=== PATIENT | male | born 1950 | race Caucasian/White ===

== ENCOUNTER 2024-08-27 13:37 | Emergency (ER) | payer MEDICARE, SELFPAY ==
[2024-08-27 14:02] VITALS: BP 139/82; PULSE 55; RESP 16; TEMP 36.6; O2SAT 100
[2024-08-27 14:36] LABS: EDUAAPPEAR Clear; EDUABILI Negative (Negative); EDUABLOOD 3+ (Negative); EDUACOLOR1 Pink; EDUAGLUCOSE Negative (Negative); EDUAKETONE Negative (Negative); EDUALEUKO Negative (Negative); EDUANITRATE Negative (Negative); EDUAPH 5.5; EDUAPROTEIN Negative (Negative); EDUASPGRAVITY 1.005; EDUAUROBILI 0.2
--- NOTE | 2024-08-27 14:45 | ED_ITS ---
HPI - Male Genitourinary General Chief complaint: Urogenital-Male Stated complaint: Uti Symptoms Time Seen by Provider: 08/27/24 14:15 Source: patient Mode of arrival: ambulatory Limitations: no limitations History of Present Illness HPI Narrative: Homer is a 74-year-old male patient presenting to the clinic today with complaints of possible urinary tract infection. He reports over the past 1-2 days he has been having some urinary frequency, left flank pain and a rust color in his urine. Also reports a numbness feeling in his penis. Denies any fevers, chills, or body aches. History of kidney stones. Reports that he had 3 stones in his left kidney that were ultrasound last year. He does see a urologist in [place]. Reports his pain is a 1-2 of 10 currently in his left flank Related Data Home Medications ?Medication ?Instructions ?Recorded ?Confirmed ?Last Taken ?Type atenolol 25 mg tablet mg 08/27/24 Unknown History atorvastatin 40 mg tablet mg 08/27/24 Unknown History Allergies Allergy/AdvReac Type Severity Reaction Status Date / Time acetaminophen (From Percocet) Allergy Unknown Verified 08/27/24 14:00 oxycodone (From Percocet) Allergy Unknown Verified 08/27/24 14:00 Review of Systems Review of Systems: Pertinent positives per HPI. Patient denies any fever, chills, rash, headache, visual changes, dizziness, cough, runny nose, sore throat, shortness of breath, chest pain, palpitations, nausea, vomiting, diarrhea, constipation, abdominal pain. PMFSH Comments At the time of my signature, I reviewed and agree with the nursing past medical, surgical, social, and family history. There is no relevant family history pertinent to the patient complaint. Exam Narrative: General: Well-developed, well nourished, in no apparent distress. Head: Normocephalic, atraumatic. Cardio: Regular rate and rhythm, s1 and s2 normal, no murmur appreciated. Resp: Clear to auscultation bilaterally, no rhonchi, rales, wheezing or rubs. Abdomen: Soft, pliable, bowel sounds present in all quadrants, non-tender to palpation, no organomegly, no CVAT tenderness. Course Course Emergency Course: Portions of this record may have been created with voice recognition software. Level of Care: Express Care Visit Vital Signs Vital signs: Vital Signs Temperature 36.6 C 08/27/24 14:02 Pulse Rate 55 L 08/27/24 14:02 Respiratory Rate 16 08/27/24 14:02 Blood Pressure 139/82 08/27/24 14:02 Pulse Oximetry 100 08/27/24 14:02 Oxygen Delivery Room Air 08/27/24 14:02 Temperature 36.6 C 08/27/24 14:02 Pulse Rate 55 L 08/27/24 14:02 Respiratory Rate 16 08/27/24 14:02 Blood Pressure 139/82 08/27/24 14:02 Pulse Oximetry 100 08/27/24 14:02 Oxygen Delivery Room Air 08/27/24 14:02 Vital signs reviewed MDM - Male Genitourinary MDM Narrative Medical decision making narrative: At the time of visit patient is resting comfortably on the exam table. Patient appears to be nontoxic. Labs: Urinalysis shows 3+ blood. No protein, leukocytes, or bili. Plan: I suspect patient may be passing a kidney stone. He reports his pain is a 1/10 currently and he is having some urinary frequency. States when he urinates he is having a full stream. He feels as though there is a strain sensation to his penis. I suspect he may be having bladder spasms. Offer to send the patient to the ER for further evaluation to rule out obstructing kidney stone and he declined and would like to try outpatient treatment. Will place on Flomax and have him follow-up with his primary care doctor. If symptoms worsen he is to go to the emergency room. Supportive measures were discussed with the patient and they voiced understanding discharge instructions and agrees to treatment plan. Return precautions reviewed Differential Diagnosis Differential diagnosis: Likely urinary tract infection, urethritis, epididymitis, prostatitis, acute retention of urine and other (Obstructing nephrolithiasis/ureterolithiasis) Lab Data Labs: Lab Results 08/27/24 Range/Units 14:34 POC Urine Color [place] POC Urine Clarity Clear POC Urine pH 5.5 POC Ur Specif [place] 1.005 POC Urine Protein Negative (Negative) POC Ur Glucose (UA) Negative (Negative) POC Urine Ketones Negative (Negative) POC Urine Blood 3+ (Negative) POC Urine Nitrite Negative (Negative) POC Urine Bilirubin Negative (Negative) POC Urine Urobilinogen 0.2 POC U Leukocyte Esteras Negative (Negative) Discharge Plan Discharge Clinical Impression: Acute flank pain, Hematuria, Increased urinary frequency Patient Disposition: Home, Self-Care Condition: Stable Instructions: Antibiotic Form, Kidney Stones (ED), Flank Pain (ED), Urinary Urgency and Frequency (DC) Additional Instructions: Increase fluids and stay well hydrated Take Tylenol/Motrin as needed for pain May apply heating pad to the left flank area to help alleviate any pain Take Flomax as prescribed Follow-up with your urologist as soon as possible If symptoms worsen recommend going to the emergency room for further evaluation- worsening of symptoms, unable to urinate, blood clots in your urine, or any other concerning symptoms Patient Language: Polish Prescriptions: New tamsulosin 0.4 mg capsule 0.4 mg PO DAILY 30 Days Qty: 30 0RF No Action atorvastatin 40 mg tablet atenolol 25 mg tablet Follow-up/Referrals: PHYSICIAN,GROUP MANAGING DIRECTOR [Primary Care Provider] - Time of Disposition: 14:47 Quality NIHSS Nursing Documentation ED NIHSS nursing documentation: reviewed/agree
== END 2024-08-27 14:56 | disposition home or self-care (01) ==
PROVIDERS: Emergency Provider Nurse Practitioner Family
DX: N20.1 Calculus of ureter (principal); Z79.899 Other long term (current) drug therapy
CPT/HCPCS: 81003; 99213; G0463

== ENCOUNTER 2024-08-27 19:11 | Emergency (ER) | payer MEDICARE, SELFPAY ==
--- NOTE | ~2024-08-27 | CT_ITS ---
EXAMINATION: CT abdomen pelvis wo con DATE: 08/27/2024 23:20 INDICATION: Left flank pain. TECHNIQUE: Computed tomography (CT) of the abdomen and pelvis was performed without intravenous contr ast. Automated exposure control and iterative reconstruction technique were employed. The dose-length product was 468.95 mGy-cm. COMPARISON: None. FINDINGS: The visualized portions of lung bases demonstrate mild atelectasis. No pleural effusion. Th e heart size is normal. There are coronary artery calcifications. There is a small sliding hiatal her venus. The liver, pancreas, gallbladder, spleen, adrenal glands, and right kidney are normal. There is a 5 mm stone in distal left ureter with mild left hydronephrosis and hydroureter. The prostate is mod erately enlarged. There are bilateral inguinal hernias containing fat. There is diverticulosis of the colon without evidence of diverticulitis. The appendix is normal. There are no dilated loops of aaron l. 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 There is mild thoracic and lumbar spondylosis. IMPRESSION: 1. 5 mm stone in distal left ureter with mild left hydronephrosis and hydroureter. 2. Small sliding hiatal hernia. Reviewed, dictated and finalized at location A. [employer] IMPRESSION: 1. 5 mm stone in distal left ureter with mild left hydronephrosis and hydrouret er. 2. Small sliding hiatal hernia.
[2024-08-27 19:17] VITALS: BP 142/75; PULSE 65; RESP 16; TEMP 36.3; O2SAT 100
--- NOTE | 2024-08-27 22:56 | ED_ITS ---
HPI - Abdominal Pain General Chief Complaint: Abdominal Pain Stated Complaint: kidney stones Time Seen by Provider: 08/27/24 22:09 History of Present Illness HPI narrative: 74-year-old male with history of kidney stones presents to emergency department with concerns for kidney stone. Patient is reporting some abdominal discomfort, left flank pain and urinary frequency for the past day. He went to urgent care today and was diagnosed with bladder spasms and was prescribed tamsulosin. Patient states he was told to come to the ED if symptoms continue to worsen. Patient states after discharge from Urgent Care he began having worsening pain, nausea and vomiting which prompted him to come to the ED. Denies fever. Patient has urologist in [place]. He is visiting for the holidays. Related Data Home Medications ?Medication ?Instructions ?Recorded ?Confirmed ?Last Taken ?Type atenolol 25 mg tablet mg 08/27/24 Unknown History atorvastatin 40 mg tablet mg 08/27/24 Unknown History Allergies Allergy/AdvReac Type Severity Reaction Status Date / Time acetaminophen (From Percocet) Allergy Unknown Verified 08/27/24 19:12 oxycodone (From Percocet) Allergy Unknown Verified 08/27/24 19:12 Review of Systems 2 Review of Systems: All systems reviewed & are unremarkable except as noted in HPI and below Exam 2 Narrative: GENERAL: Well-appearing, well-nourished, and in no acute distress. HEAD: Normocephalic, atraumatic. EYES: EOMI. ENT: Nares clear, no rhinorrhea or epistaxis. Mucous membranes moist. NECK: Supple. CHEST: Clear to auscultation. No respiratory distress. HEART: Regular rate and rhythm. No murmur heard. Normal peripheral pulses. ABDOMEN: Normoactive bowel sounds. Abdomen soft with tenderness in the suprapubic region and left CVA. No rebound or rigidity EXTREMITIES: Normal range of motion. No edema. SKIN: Warm, dry, no rash. NEURO: No focal deficits. Alert and oriented x3 Course Vital Signs Vital signs: Vital Signs Temperature 97.3 F L 08/27/24 19:17 Pulse Rate 65 08/27/24 19:17 Respiratory Rate 16 08/27/24 19:17 Blood Pressure 142/75 H 08/27/24 19:17 Pulse Oximetry 100 08/27/24 19:17 Oxygen Delivery Room Air 08/27/24 19:17 Temperature 97.3 F L 08/27/24 19:17 Pulse Rate 56 L 08/28/24 00:34 Respiratory Rate 14 08/28/24 00:34 Blood Pressure 120/70 08/28/24 00:34 Pulse Oximetry 100 08/28/24 00:34 Oxygen Delivery Room Air 08/27/24 19:17 MDM - Abdominal Pain MDM Narrative Medical decision making narrative: 74-year-old male with history of kidney stones presents to emergency department for abdominal discomfort, left flank pain, nausea vomiting, urinary frequency. Triage vitals are stable. Patient is afebrile and nontoxic appearing. Exam is significant for the above. Lab Data 08/27/24 23:06 Labs: Lab Results 08/27/24 Range/Units 23:06 Sodium 136 L (137-145) mmol/L Potassium 3.7 (3.4-5.0) mmol/L Chloride 104 (98-107) mmol/L Carbon Dioxide 30 (22-30) mmol/L Anion Gap 2 L (4-12) mmol/L BUN 17 (9-20) mg/dL Creatinine 1.00 (0.7-1.3) mg/dL Estim Creat Clear Calc 65 ml/min Estimated GFR > 60 (59 - ) Glucose 106 (65-110) mg/dL Calcium 9.2 (8.4-10.2) mg/dL Total Bilirubin 1.5 H (0.2-1.3) mg/dL Direct Bilirubin 0.0 (0-0.3) mg/dL AST 32 (17-59) U/L ALT 26 (6-50) U/L Alkaline Phosphatase 85 (38-126) U/L Total Protein 7.0 (6.3-8.2) g/dL Albumin 4.3 (3.5-5.1) g/dL Lipase 52 (23-300) U/L Urine Color Yellow (Yellow) Urine Appearance Cloudy H (Clear) Urine pH 5.5 (5.0-9.0) Ur Specific [place] 1.018 (1.001-1.035) Urine Protein 1+ H (Negative) mg/dL Urine Glucose (UA) Negative (Negative) mg/dL Urine Ketones 1+ H (Negative) mg/dL Ur Blood (Man) 3+ H (Negative) Urine Nitrate Negative (Negative) Urine Bilirubin Negative (Negative) Urine Urobilinogen 0.2 (<2.0) mg/dL Leukocyte Esterase Rfl Trace H (Negative) TONI/UL Urine RBC >100 H (0-2) /hpf Urine WBC 0-5 (0-3) /hpf Ur Squamous Epith Cells None seen (Few) /hpf Urine Bacteria None seen /hpf Urine Casts 0-2 Discharge Plan Discharge Instructions: Antibiotic Form Patient Language: Vietnamese Prescriptions: No Action atorvastatin 40 mg tablet atenolol 25 mg tablet tamsulosin 0.4 mg capsule 0.4 mg PO DAILY 30 Days Qty: 30 0RF Follow-up/Referrals: UNKNOWN,DOCTOR [Primary Care Provider] -
[2024-08-27] MEDS: ONDANSETRON INJ 4 MG/2 ML VIAL IV PUSH (23:11)
[2024-08-27 23:23] LABS: Add Urine Microscopic? YES; Appearance Urine Cloudy (Clear); Bacteria Urine None Seen /hpf; Bilirubin Urine Negative (Negative); Blood Urine 3+ (Negative); Color Urine Yellow (Yellow); Glucose Urine UA Negative (Negative); Ketones Urine 1+ mg/dL (Negative); Leukocyte Esterase Ur Trace LEU/UL (Negative); Nitrate Urine Negative (Negative); Non Pathogenic Casts 0-2; Protein Urine 1+ mg/dL (Negative); RBC Urine >100 /hpf (0-2); Specific Grav Ur 1.018 (1.001-1.035); Squamous Epithelial Cell Urine None Seen /hpf (Few); Urobilinogen Urine 0.2 mg/dL (<2.0); WBC Urine 0-5 /hpf (0-3); pH Urine 5.5 (5.0-9.0)
[2024-08-27 23:29] LABS: Alanine Aminotransferase 26 U/L (6-50); Albumin Level 4.3 g/dL (3.5-5.1); Alkaline Phosphatase 85 U/L (38-126); Anion Gap 2 mmol/L (4-12); Aspartate Amino Transferase 32 U/L (17-59); Bilirubin,Total 1.5 mg/dL (0.2-1.3); Blood Urea Nitrogen 17 mg/dL (9-20); Calcium 9.2 mg/dL (8.4-10.2); Carbon Dioxide 30 mmol/L (22-30); Chloride 104 mmol/L (98-107); Estimated CRCL calculation 65 ml/min; Estimated Glomerular Filt Rate > 60; Glucose 106 mg/dL (65-110); Lipase 52 U/L (23-300); Potassium 3.7 mmol/L (3.4-5.0); Sodium 136 mmol/L (137-145)
[2024-08-28] MEDS: PROCHLORPERAZINE EDISYLATE 10 MG/2 ML VIAL IM (00:14)
[2024-08-28 00:34] VITALS: BP 120/70; PULSE 56; RESP 14; O2SAT 100
[2024-08-28] MEDS: SODIUM CHLORIDE 0.9% IV 1,000 ML 999 ML IV CONT (00:34)
[2024-08-28 03:29] LABS: Basophils Percent Auto 0.3 % (0.2-1.2); Eosinophils Percent Auto 0.4 % (0-4.4); Hematocrit 40.2 % (42.0-52.0); Hemoglobin 13.6 g/dL (14.0-18.0); Immature Granulocyte Absolute 0.02 K/mm3 (0.00-0.031); Immature Granulocyte Percent A 0.2 % (0-0.5); Lymphocytes Absolute Auto 0.91 K/mm3 (0.9-3.2); Lymphocytes Percent Auto 9.9 % (18.3-44.2); Mean Corpuscular HGB Conc 33.8 g/dl (32-36); Mean Corpuscular Hemoglobin 31.3 pg (26-34); Mean Corpuscular Volume 92.6 fl (80-100); Mean Platelet Volume 10.5 fl (7.4-10.4); Monocytes Absolute Auto 0.6 K/mm3 (0.1-0.6); Monocytes Percent Auto 6.6 % (2.6-8.5); Neutrophils Absolute Auto 7.6 K/mm3 (1.3-6.7); Neutrophils Percent Auto 82.6 % (45.5-73.1); Platelet Count Result 138 k/mm3 (150-375); Red Blood Count 4.34 M/mm3 (4.6-6.20); Red Cell Distribution Width 13.2 % (11.5-14.5); White Blood Count 9.2 K/mm3 (4.5-10.0)
== END 2024-08-28 03:00 | disposition home or self-care (01) ==
PROVIDERS: Emergency Provider Physician Assistant
DX: N20.1 Calculus of ureter (principal)
CPT/HCPCS: 36415; 74176; 80048; 81001; 82248; 83690; 85025; 99283; J0780; J2405; J7030

== ENCOUNTER 2024-08-29 07:21 | Day surgery (SDC) | payer MEDICARE, SELFPAY ==
[2024-08-29] VITALS (7 sets, daily range): BP systolic 112–127; BP diastolic 52–78; PULSE 51–86; RESP 14–18; TEMP 36.3; O2SAT 99–100; BMI 23.7
--- NOTE | ~2024-08-29 | XR_ITS ---
EXAMINATION: XR fluoroscopy no charge DATE: 08/29/2024 10:11 INDICATION: Left flank pain. Left ureteral stone. TECHNIQUE: 3 intraoperative fluoroscopic views of the abdomen and pelvis were obtained. I was not pre sent. Fluoroscopy exposure time was 10 seconds. COMPARISON: CT abdomen and pelvis 06/27/2024 FINDINGS: Initial images demonstrate a 5 mm stone in the distal left ureter. Images demonstrate a wir e in the left ureter. IMPRESSION: 1. 5 mm stone in distal left ureter. Reviewed, dictated and finalized at location A. DEVELOPER
[2024-08-29] MEDS: LACTATED RINGERS 1,000 ML 30 ML IV CONT (08:30)
--- NOTE | 2024-08-29 08:40 | ECG_ITS ---
Test Date: 2024-08-29 09:00:07 Measurements Intervals [place] Rate: 54 P: 99 MI: 171 QRS: -13 QRSD: 85 T: 132 QT: 407 QTc: 389 Interpretive Statements SINUS BRADYCARDIA WITH OCCASIONAL VENTRICULAR PREMATURE COMPLEXES NONSPECIFIC ST & T-WAVE ABNORMALITY ABNORMAL ECG No previous ECG available for comparison Electronically Signed On 08-29-2024 12:05:29 CASTING AND CURING OPERATOR by Wallace Harper M.D.
--- NOTE | 2024-08-29 08:57 | WPDANESEPPF ---
Anes - Initial Pre Proc Eval Procedure: Operation Date: 08/29/24 10:00 Proposed Procedures p Cystoscopy, Left Ureteroscopy, Possible Left Retrograde Pyelogram, Possible Left Stone Extraction, Possible Left Stent Placement, Possible Holmium Laser - Jere Shore MD Date/Time: 08/29/24 08:57 Surgeon: Jere Shore MD Pre Op Diagnosis: left kidney stone Patient Data Age: 74 Gender: M Height: Weight: Allergies Allergy/AdvReac Type Severity Reaction Status Date / Time acetaminophen (From Percocet) Allergy Unknown Verified 08/27/24 19:12 oxycodone (From Percocet) Allergy Unknown Verified 08/27/24 19:12 Home Medications ?Medication ?Instructions ?Recorded ?Confirmed ?Type atorvastatin 40 mg tablet mg 08/27/24 History tamsulosin 0.4 mg capsule 0.4 mg PO DAILY 30 days #30 caps 08/27/24 Rx hydrocodone 5 mg-acetaminophen 325 1 tablet PO Q8H PRN pain #14 tabs 08/28/24 Rx mg tablet ondansetron 4 mg disintegrating 4 mg PO Q8H #14 tabs 08/28/24 Rx tablet apixaban 5 mg tablet 5 mg PO BID 08/29/24 08/29/24 History Patient hx anesthesia problems: none Family hx anesthesia problems: none Results Review: All pre-operative results and documents have been reviewed as part of the pre-operative evaluation. [facility] Past Medical History Medical History (Updated 08/29/24 @ 08:58 by Jeffery Branch DO) History of pulmonary embolism Hyperlipidemia Tachycardia Surgical History Surgical History (Updated 08/29/24 @ 08:58 by Jeffery Branch DO) S/P AAA repair 2023 Anes - Eval Final PreProcedure Day of Procedure 08/29/24 08:57 Patient weight: overweight Heart: regular rate and rhythm Lungs: clear to auscultation Airway: Mallampati scale class II Neurological: alert and oriented Last oral intake: >/= 8 hours ASA classification: III Emergent: no Anesthetic plan: proceed Anesthesia type and monitoring: general LMA and standard monitoring Results Review: All pre-operative results and documents have been reviewed as part of the pre-operative evaluation. Informed Consent: The patient's anesthetic plan and its attendant risks and benefits were discussed with the patient/family/POA. Questions were solicited and answers provided to the satisfaction of the patient/family/POA.
--- NOTE | 2024-08-29 09:32 | P.HP_ITS ---
History of Present Illness History of Present Illness Consent: Risks, benefits, and alternatives have been discussed and questions answered. Patient agrees to proceed with procedure. Chief complaint: left kidney stone Narrative: Homer Osorio is a 74 year old male resides in [place]. He has a history of 1 prior ureteral stone several years ago that passed spontaneously. He presented the emergency department here with left flank pain. Imaging demonstrates a 4 mm obstructing left distal ureteral stone. He has had no fevers chills or significant gross hematuria. After discussion of options he is electing for outpatient cystoscopy with left ureteroscopy, stone extraction. He is aware the risk including, not limited to, injury to the ureter, need for additional procedures. Review of Systems Cardiovascular: Cardiovascular: Denies chest pain, Denies lightheadedness, Denies palpitations and Denies dyspnea Respiratory: Respiratory: Denies dyspnea Gastrointestinal: Gastrointestinal: Denies diarrhea, Denies nausea and Denies vomiting Genitourinary: Genitourinary: Denies hematuria and Denies dysuria Endocrine: Endocrine: Denies palpitations [facility] Past Medical History Medical History (Updated 08/29/24 @ 09:34 by Jere Shore MD) History of pulmonary embolism Hyperlipidemia Tachycardia Surgical History Surgical History (Updated 08/29/24 @ 08:58 by Jeffery Branch DO) S/P AAA repair 2023 Meds Home Medications and Allergies Home Medications ?Medication ?Instructions ?Recorded ?Confirmed ?Type atorvastatin 40 mg tablet 40 mg PO DAILY 08/27/24 08/29/24 History tamsulosin 0.4 mg capsule 0.4 mg PO DAILY 30 days #30 caps 08/27/24 08/29/24 Rx hydrocodone 5 mg-acetaminophen 325 1 tablet PO Q8H PRN pain #14 tabs 08/28/24 08/29/24 Rx mg tablet ondansetron 4 mg disintegrating 4 mg PO Q8H #14 tabs 08/28/24 08/29/24 Rx tablet apixaban 5 mg tablet 5 mg PO BID 08/29/24 08/29/24 History Allergies Allergy/AdvReac Type Severity Reaction Status Date / Time acetaminophen (From Percocet) Allergy Unknown Verified 08/27/24 19:12 oxycodone (From Percocet) Allergy Unknown Verified 08/27/24 19:12 Exam Const: General: no acute distress Resp: Effort & Inspection: normal respiratory effort GI: Inspection: non-distended GI Palp: No abdominal tenderness and No Guarding due to palpation present (GI) Auscultation: normal bowel sounds Assessment and Plan Assessment and plan (1) Left ureteral stone: Code(s): N20.1 - Calculus of ureter Status: Acute Assessment and Plan: * Cystoscopy, left ureteroscopy with stone extraction, possible laser lithotripsy, retrograde pyelogram and stent placement
--- NOTE | 2024-08-29 09:34 | WPDHPUPDATE1 ---
History and Physical Update Update Date/Time: 08/29/24 09:34 History and Physical has been reviewed, including an updated exam of the patient. There are NO changes in the patient's condition. Risks, benefits, and alternatives have been discussed and questions answered. Patient agrees to proceed with procedure.
[2024-08-29] MEDS: ceFAZolin 2 GM/D5W 50 ML 2 GM/50 ML BAG IVPB (09:42)
[2024-08-29] MEDS: LIDOCAINE 2% GEL UROJET 10 ML PKG MUCOUS MEM (09:56)
--- NOTE | 2024-08-29 10:21 | W.PM.PROC2 ---
Procedure Note - Detailed Date of Procedure 08/29/24 Pre-op Diagnosis Left ureteral stone Post-op Diagnosis Same Procedure Performed Cystoscopy, left ureteroscopy, laser lithotripsy with stone extraction Surgeon Jere Shore MD Anesthesia General Description of Procedure patient is brought to the operative suite was prepped and draped in routine sterile fashion in dorsal lithotomy position after the uneventful induction of a general LMA anesthetic. Cystoscopy was undertaken with a 19 F rigid cystoscope. He has no urethral stricture and very modest lateral lobe hyperplasia the prostate. Bladder mucosa is normal. There was no intravesical foreign body neoplasm. 0.035 in glidewire was advanced in the left renal pelvis and the distal ureter was dilated with an 8F/10F dilator. Ureteroscopy was undertaken with a short tapered semi-rigid ureteral scope. His 4mm stone is identified. I attempted to extracted with a basket but there was just enough ureteral edema to preclude passage. Using a 200 micron holmium laser fiber I broke the stone and 2 small or pieces and extracted these with these with the basket. Because of ease of this manipulation lack of apparent injury to the ureter opted not to place ureteral stent. Scopes and wires were removed and he was taken recovery room in good condition. Estimated Blood Loss 0 Drains No Packing No Complications No immediate complications
== END 2024-08-29 11:28 | disposition home or self-care (01) ==
PROVIDERS: Visit Provider Urology
PROC: (CPT 52352; principal; 2024-08-29 10:00)
DX: N20.1 Calculus of ureter (principal); E78.5 Hyperlipidemia, unspecified; R00.0 Tachycardia, unspecified; Z79.891 Long term (current) use of opiate analgesic; Z79.01 Long term (current) use of anticoagulants; Z98.890 Other specified postprocedural states; Z86.711 Personal history of pulmonary embolism
CPT/HCPCS: 52353; 82365; 88300; 93005; 99199; C1769; J0690; J1100; J2405; J2704; J7120; Q9966